=== PATIENT | female | born 2000 | race Caucasian/White ===

== ENCOUNTER 2023-07-02 14:54 | Inpatient (IN) ==
[2023-07-02] MEDS ORDERED: OXYTOCIN 30 UNITS/NSS 30 UNITS/500 ML BAG IV PRN (14:55)
[2023-07-02] MEDS ORDERED: LIDOCAINE 1% LOCAL 20 ML VIAL INFIL PRN (14:55)
[2023-07-02] MEDS ORDERED: Patient's ALLERGY Info needs ENTERED STA (15:02)
--- NOTE | 2023-07-02 15:06 | History & Physical Report ---
Date of Service July 02, 2023 Assessment & Plan (1) Encounter for induction of labor: (2) Obesity affecting : Plan Will admit patient to L&D for induction of labor Fetus cat 1 Rh positive mother GBS negative Rubella immune Ortiz balloon placed Epidural prn Pitocin as needed Patient in agreement Admission and Anticipated Discharge Date Admission Date: July 02, 2023 History of Present Illness Chief Complaint: IOL Primary Care Provider: NO PCP Ellen is a 22 y/o female with no significant PMHx who is currently at IUP 40 6/7 WGA with an FRANKLYN 06/26/23 as determined by certain LMP who is here for IOL due to postdates. (+) movement (-) contractions (-) fluid loss (-) bloody show External FHT and external uterine monitors used * Category 1 tracing * Moderate FHT variability. Had regular appointments since 1st trimester. OB Labs: Blood Type O Positive 11/17/22 Antibody Screen NEGATIVE 11/17/22 Hemoglobin 11.9 g/dl (12.0-16.0) L 05/20/23 Hematocrit 35.9 % (37.0-47.0) L 05/20/23 Mean Corpuscular Volume 85.1 fL (80.0-100.0) 05/20/23 Platelet Count 261 K/uL (130-400) 05/20/23 Rubella IgG Antibody Immune (Immune) 11/17/22 Rapid Plasma Reagin Nonreactive (Nonreactive) 11/17/22 Hepatitis B Surface Antigen. NON-REACTIVE (NON-REACTIVE) 11/17/22 Hepatitis C Antibody (EIA) NON-REACTIVE (NON-REACTIVE) 11/17/22 HIV (1&2) Ag and Ab Confirmation NON-REACTIVE (NON-REACTIVE) 11/17/22 Glucose 1 Hour 50 gm Load 98 mg/dl (70-130) 04/06/23 OB Optional Labs: Chlamydia trachomatis RNA Not Detected (NotDetected) 11/17/22 Neisseria gonorrhoeae RNA Not Detected (NotDetected) 11/17/22 Labs Reviewed: Declines carrier screen--mln low risk panorama--akh declines afp--akh Allergies Allergy/AdvReac Type Severity Reaction Status Date / Time No Known Allergies Allergy Verified 07/01/23 11:24 Home Medications Medication Instructions Recorded Confirmed Type folic acid 400 mcg tablet 0.4 mg PO DAILY 11/09/22 07/01/23 History vit 168-iron 27 mg-folic cap PO 11/09/22 07/01/23 History acid 800 mcg-omega3 235 mg capsule (One-A-Day -1) Patient History Surgical History (Updated 11/09/22 @ 10:57 by Maren Renee) S/P wisdom tooth extraction Family History (Updated 11/09/22 @ 10:52 by Maren Renee) Other Cancer Cervical cancer Dyslipidemia Heart disease Hypertension Social History (Updated 11/09/22 @ 10:52 by Maren Renee) Smoking Status: Never smoker Second Hand Exposure: No; Do You Dip or Chew Tobacco: No; Hx Alcohol Use: No Hx Substance Use: No Preferred Language: Austrian Communication Ability: Effective Facility Assistant Required: No Beliefs That Will Affect Care: None marital status: marital status details: Klever (24) [phone] Current Living Situation: Spouse Current Living Situation Comment: - Klever, dog -Ed 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 Details: never had a pap Review of Systems no fever, no chills and no sweats Denies changes in vision. Denies shortness of breath or respiratory difficulty. no chest pain and no palpitations no dysuria no headache(s) Physical Exam Physical Exam: General: Alert, oriented x3. Afebrile. No acute distress. Eyes: Pupils equal and reactive to light bilaterally. Extraocular movement intact bilaterally. Cardiac: Regular rate and rhythm, no murmurs/rubs/gallops. Respiratory: Clear to auscultation bilaterally a/p, no wheezes/rales/rhonchi. No increased work of breathing. Symmetrical chest rise. No respiratory distress. Abdomen: Gravid; FHR baseline of 125-130 bpm; Position: Vertex Pelvic: 1 / 50 / -3 Lower Extremities: No lower extremity edema or swelling. No deep calf pain. Elham's negative bilaterally
[2023-07-02 15:30] LABS: Hemoglobin 11.4 g/dl (12.0-16.0); Mean Corpuscular Hemoglobin 26.9 pg (25.0-34.0); Mean Corpuscular Hgb Conc 32.6 g/dL (32.0-36.0); Mean Corpuscular Volume 82.5 fL (80.0-100.0); Mean Platelet Volume 10.5 fL (9.4-12.4); Platelet Count 352 K/uL (130-400); RDW Coefficient of Variation 14.2 % (11.5-14.5); RDW Standard Deviation 41.9 fL (36.4-46.3); Red Blood Count 4.24 M/uL (4.20-5.40)
--- NOTE | 2023-07-02 15:48 | Labor Progress Brief Note ---
Date of Service July 02, 2023 Subjective Here for IOL for postdates at 40w6d. Plan per Dr. Castaneda is stallworth with pitocin. Patient has no OB c/o at arrival. Assessment & Plan Admission and Anticipated Discharge Date Admission Date: July 02, 2023 Physical Exam Genitourinary: /3 FHT Cat 1 [place] quiet Membranes intact Stallworth placed at 35cc fill Coding Level of Care Code None
[2023-07-02] MEDS: LACTATED RINGER'S 1,000 ML IV PRN (16:15)
[2023-07-02] MEDS: OXYTOCIN 30 UNITS/NSS 30 UNITS/500 ML BAG IV PRN (16:31)
[2023-07-02] MEDS ORDERED: LIDOCAINE 2% MPF LOCAL 5 ML VIAL EPI PRN (23:43)
[2023-07-02] MEDS ORDERED: fentANYL 2 MCG/ML BUPIVacaine 0.125%-NSS 100ML BAG EPI PRN (23:43)
[2023-07-02] MEDS ORDERED: ePHEDrine sulfate 50 MG/ML AMP IV PRN (23:43)
[2023-07-02] MEDS ORDERED: BUPIVACAINE 0.25% PF 30 ML VIAL EPI PRN (23:43)
[2023-07-02] MEDS ORDERED: fentaNYL citrate PF 100 MCG/2 ML VIAL EPI PRN (23:43)
[2023-07-02] MEDS ORDERED: NALBUPHINE HCL 5 MG in SYRINGE 0 ML IV PRN (23:43)
[2023-07-02] MEDS ORDERED: NALOXONE HCL 0.4 MG/1 ML VIAL/CARP IV PRN (23:43)
[2023-07-02] MEDS ORDERED: ROPIVACAINE 0.5% PF 5 MG/ML 20 ML VIAL EPI PRN (23:43)
[2023-07-02] MEDS ORDERED: NALOXONE HCL 1 MG in SODIUM CHLORIDE 0.9% 1,000 ML IV PRN (23:43)
[2023-07-02] MEDS ORDERED: SODIUM CHLORIDE 0.9% PF INJ 10 ML VIAL EPI PRN (23:43)
[2023-07-02] MEDS ORDERED: diphenhydrAMINE 50 MG/ML VIAL IV PRN (23:43)
--- NOTE | 2023-07-02 23:46 | Anesthesiology Consultation ---
Date of Service July 02, 2023 Assessment & Plan (1) Encounter for pre-operative examination: Chart Review Chart Review: Patient NOT seen in Pre Admission Testing and Acceptable Risk for Labor Epidural Consults Requested none History Height/Weight Height: 5 ft 8 in Weight: 122.016 kg Allergies Allergy/AdvReac Type Severity Reaction Status Date / Time No Known Allergies Allergy Verified 07/01/23 11:24 Medications Home Medications Medication Instructions Recorded Confirmed Last Taken folic acid 400 mcg tablet 0.4 mg PO DAILY 11/09/22 07/02/23 Unknown vit 168-iron 27 mg-folic 1 cap PO DAILY 11/09/22 07/02/23 Unknown acid 800 mcg-omega3 235 mg capsule (One-A-Day -1) Active Medications Generic Name Dose Route Start Last Admin Trade Name Freq PRN Reason Stop Dose Admin Lactated Ringer's 1,000 mls @ 125 mls/hr 07/02/23 14:55 07/02/23 23:42 Lr IV 07/04/23 14:54 999 mls/hr .Q8H PRN Administration L&D Protocol Protocol Oxytocin 30 units in 500 mls @ 14 mls/hr 07/02/23 15:32 07/02/23 22:45 Pitocin 30 Units/Nss IV 07/04/23 15:31 0.84 units/hr .Q24H PRN 14 mls/hr Labor Induction/Augmentation Titration Protocol 0.84 UNITS/HR Past Medical History Medical History (Updated 07/02/23 @ 23:45 by Norm Lopez MD) Encounter for pre-operative examination Hypertension affecting in third trimester Obesity affecting Exercise / Class Metabolic Activity II 4-5 Yardwork/Stairs/Walk up hill Past Family History Family History Other Cancer Cervical cancer Dyslipidemia Heart disease Hypertension Past Surgical History Surgical History S/P wisdom tooth extraction Social History Smoking Status: Never smoker Do You Dip or Chew Tobacco: No Hx Alcohol Use: No Hx Substance Use: No substance use type: does not use Physical Exam Vital Signs Last Vital Signs Temp 36.9 C 07/02/23 23:23 Pulse 80 07/03/23 00:06 Resp 18 07/02/23 23:23 BP 130/80 07/03/23 00:06 Pulse Ox 100 07/03/23 00:05 O2 Del Method Room Air 07/02/23 15:16 Testing Laboratory Results 07/02/23 15:14 Blood Type O Positive 07/02/23 15:14 Antibody Screen NEGATIVE 07/02/23 15:14
[2023-07-03] MEDS: fentaNYL citrate PF 100 MCG/2 ML VIAL ONE ×2 (00:15→10:01)
[2023-07-03] MEDS: LIDOCAINE 2%/EPINEPHRINE 1:200,000 20 ML PF ONE ×2 (00:16→06:39)
[2023-07-03] MEDS: BUPIVACAINE 0.25% PF 30 ML VIAL ONE ×2 (00:16→06:39)
[2023-07-03] MEDS: fentANYL 2 MCG/ML BUPIVacaine 0.125%-NSS 100ML BAG ONE ×2 (00:17→06:40)
--- NOTE | 2023-07-03 01:03 | Labor Progress Brief Note ---
Date of Service July 03, 2023 Subjective Reason For Note: Routine Evaluation Assessment & Plan (1) Encounter for induction of labor: Plan: Status post cervical ripening Ortiz. Will continue with oxytocin per protocol. AROM for clear. Category 1 tracing. Will continue to monitor (2) Supervision of normal intrauterine in primigravida: Trimester: third trimester Qualified Code(s): Z34.03 - Encounter for supervision of normal first , third trimester Admission and Anticipated Discharge Date Admission Date: July 02, 2023 Physical Exam Genitourinary: Manual OB Exam: + cervical dilation 3 cm, + cervical effacement 70%, + station -2 and + amniotic fluid (AROM) clear OB Exam Monitor Tracing: + external FHT monitor used, + external uterine monitor used, + category I and + normal FHT variability Results & Data Vital Signs (Past 12 Hours) Vital Signs Temp Pulse Resp BP Pulse Ox O2 Del Method 07/03/23 00:58 16 07/03/23 00:58 36.7 C 16 07/03/23 00:55 84 99 07/03/23 00:52 63 137/78 07/03/23 00:50 72 98 07/03/23 00:49 66 124/77 07/03/23 00:46 65 125/79 07/03/23 00:45 71 98 07/03/23 00:43 66 124/78 07/03/23 00:40 98 07/03/23 00:40 65 07/03/23 00:40 63 129/84 07/03/23 00:37 58 L 125/81 07/03/23 00:35 72 99 07/03/23 00:34 60 123/82 07/03/23 00:31 66 130/85 07/03/23 00:30 69 98 07/03/23 00:25 77 134/65 98 07/03/23 00:22 74 18 135/76 07/03/23 00:20 74 99 07/03/23 00:19 71 135/87 07/03/23 00:16 79 18 136/88 07/03/23 00:15 84 99 07/03/23 00:13 80 18 139/89 07/03/23 00:10 100 07/03/23 00:10 64 07/03/23 00:10 70 138/84 07/03/23 00:06 80 130/80 07/03/23 00:05 83 100 07/03/23 00:00 89 100 07/02/23 23:55 86 98 07/02/23 23:48 85 100 07/02/23 23:43 85 100 07/02/23 23:23 18 07/02/23 23:23 36.9 C 18 07/02/23 22:43 58 L 135/85 07/02/23 21:41 70 141/89 H 07/02/23 20:41 76 123/75 07/02/23 19:41 75 123/75 07/02/23 19:07 18 07/02/23 19:07 36.7 C 18 07/02/23 19:06 69 133/83 07/02/23 18:41 63 132/81 07/02/23 18:38 64 129/80 07/02/23 16:41 82 125/75 07/02/23 16:11 97 H 136/79 07/02/23 15:16 37.1 C 18 Room Air Coding Level of Care Code None Diagnoses Encounter for induction of labor Z34.90 Encounter for supervision of normal first in third trimester Z34.03 Trimester: third trimester
[2023-07-03] MEDS: SODIUM CHLORIDE 0.9% PF INJ 10 ML VIAL ONE ×2 (01:13→07:18)
[2023-07-03] MEDS: ePHEDrine sulfate 50 MG/ML AMP ONE ×2 (01:15→07:18)
[2023-07-03] MEDS: ONDANSETRON INJ 2 MG/ML 2 ML VIAL IV PRN ×2 (03:27→14:11)
[2023-07-03] MEDS: BUPIVACAINE 0.25% PF 30 ML VIAL EPI STA ×2 (04:27→10:01)
--- NOTE | 2023-07-03 04:58 | Anesthesia Procedure Note ---
Date of Service July 03, 2023 Anesthesia Epidural Re-Dose Vital Signs Temp Pulse Resp BP Pulse Ox O2 Del Method 36.5 C 71 16 143/60 H 100 Room Air 07/03/23 03:00 07/03/23 04:51 07/03/23 03:00 07/03/23 04:51 07/03/23 04:50 07/02/23 15:16 Notes Pain Intensity: 0 Dilatation (cm): 4.0 Effacement (%): 75 Called by nursing to evaluate epidural as the patient is having increased pain. The epidural was re-dosed with the following medications (all medications via epidural route) after negative aspiration of the epidural catheter for CSF/HEME. 6ml of 0.25% bupivacaine followed by 4ml of 2% lidocaine. pain mildly improved. patient with profound lower extremity weakness and sensory change. at this point if patient cannot obtain relief only other option would be to replace epidural. patient does not want to do this at this point in time After Epidural Re-Dose Mental Status: alert / awake / arousable Pain: improving with treatment Airway Patency, RR, SpO2: stable & adequate BP & HR: stable & adequate
[2023-07-03] MEDS: LIDOCAINE 2%/EPINEPHRINE 1:200,000 20 ML PF EPI STA ×2 (05:21→10:02)
[2023-07-03] MEDS ORDERED: AZITHROMYCIN 500 MG in DEXTROSE 5% 250 ML IV SCH (06:00)
[2023-07-03] MEDS: fentaNYL citrate PF 100 MCG/2 ML VIAL EPI STA ×2 (06:36→10:01)
[2023-07-03] MEDS ORDERED: fentANYL 2 MCG/ML BUPIVacaine 0.125%-NSS 100ML BAG EPI PRN (06:46)
[2023-07-03] MEDS ORDERED: ONDANSETRON INJ 2 MG/ML 2 ML VIAL IV PRN (06:46)
[2023-07-03] MEDS ORDERED: NALOXONE HCL 0.4 MG/1 ML VIAL/CARP IV PRN (06:46)
[2023-07-03] MEDS ORDERED: BUPIVACAINE 0.25% PF 30 ML VIAL EPI PRN (06:46)
[2023-07-03] MEDS ORDERED: SODIUM CHLORIDE 0.9% PF INJ 10 ML VIAL EPI PRN (06:46)
[2023-07-03] MEDS ORDERED: NALBUPHINE HCL 5 MG in SYRINGE 0 ML IV PRN ×2 (06:46→11:37)
[2023-07-03] MEDS ORDERED: ePHEDrine sulfate 50 MG/ML AMP IV PRN ×2 (06:46→11:37)
[2023-07-03] MEDS ORDERED: ROPIVACAINE 0.5% PF 5 MG/ML 20 ML VIAL EPI PRN (06:46)
[2023-07-03] MEDS ORDERED: LIDOCAINE 2% MPF LOCAL 5 ML VIAL EPI PRN (06:46)
[2023-07-03] MEDS ORDERED: NALOXONE HCL 1 MG in SODIUM CHLORIDE 0.9% 1,000 ML IV PRN ×2 (06:46→11:37)
[2023-07-03] MEDS ORDERED: diphenhydrAMINE 50 MG/ML VIAL IV PRN ×2 (06:46→11:37)
[2023-07-03] MEDS ORDERED: fentaNYL citrate PF 100 MCG/2 ML VIAL EPI PRN (06:46)
--- NOTE | 2023-07-03 07:25 | Labor Progress Brief Note ---
Date of Service July 03, 2023 Subjective Reason For Note: Routine Evaluation Assessment & Plan (1) Encounter for induction of labor: Plan: Progressing well. Continue Pitocin per regular protocol. Vitals within normal limits. Category 1 tracing. (2) Supervision of normal intrauterine in primigravida: Trimester: third trimester Qualified Code(s): Z34.03 - Encounter for supervision of normal first , third trimester Admission and Anticipated Discharge Date Admission Date: July 02, 2023 Physical Exam Genitourinary: Manual OB Exam: + cervical dilation 6 cm, + cervical effacement 90%, + station 0 and + amniotic fluid clear OB Exam Monitor Tracing: + external FHT monitor used, + external uterine monitor used and + category I Results & Data Vital Signs (Past 12 Hours) Vital Signs Temp Pulse Resp BP Pulse Ox 07/03/23 07:20 79 97 07/03/23 07:15 70 99 07/03/23 07:10 73 99 07/03/23 07:08 62 130/81 07/03/23 07:06 73 132/80 07/03/23 07:05 64 99 07/03/23 07:04 65 129/76 07/03/23 07:02 77 125/65 07/03/23 07:00 62 123/66 98 07/03/23 06:58 50 L 132/79 07/03/23 06:56 52 L 128/73 07/03/23 06:55 98 07/03/23 06:55 56 L 07/03/23 06:55 52 L 94 07/03/23 06:54 51 L 130/74 07/03/23 06:52 50 L 124/79 07/03/23 06:50 58 L 130/83 96 07/03/23 06:48 93 07/03/23 06:48 68 07/03/23 06:48 56 L 126/80 07/03/23 06:45 58 L 98 07/03/23 06:44 83 20 142/92 H 07/03/23 06:42 58 L 138/84 07/03/23 06:40 67 98 07/03/23 06:39 84 130/83 07/03/23 06:35 99 07/03/23 06:35 60 07/03/23 06:35 77 129/88 07/03/23 06:30 82 99 07/03/23 06:25 68 99 07/03/23 06:20 76 99 07/03/23 06:15 61 98 07/03/23 06:10 99 07/03/23 06:10 62 07/03/23 06:10 68 183/85 H 07/03/23 06:05 72 99 07/03/23 06:00 81 100 07/03/23 05:55 73 99 07/03/23 05:52 86 144/84 H 07/03/23 05:50 77 100 07/03/23 05:45 75 99 07/03/23 05:40 77 97 07/03/23 05:38 69 93 07/03/23 05:37 70 132/77 07/03/23 05:35 68 96 07/03/23 05:30 68 96 07/03/23 05:29 77 94 07/03/23 05:25 64 97 07/03/23 05:24 61 94 07/03/23 05:22 63 129/74 07/03/23 05:20 36.7 C 70 16 98 07/03/23 05:15 61 93 07/03/23 05:10 62 93 07/03/23 05:09 63 94 07/03/23 05:08 61 128/74 07/03/23 05:05 62 97 07/03/23 05:00 73 97 07/03/23 04:59 61 93 07/03/23 04:55 63 98 07/03/23 04:51 71 143/60 H 07/03/23 04:50 69 100 07/03/23 04:48 75 126/59 L 07/03/23 04:46 74 127/60 07/03/23 04:45 71 100 07/03/23 04:44 74 121/58 L 07/03/23 04:42 79 116/56 L 07/03/23 04:40 74 130/61 100 07/03/23 04:38 71 128/70 07/03/23 04:36 75 134/70 07/03/23 04:35 99 07/03/23 04:35 72 07/03/23 04:35 77 151/67 H 07/03/23 04:32 84 138/78 07/03/23 04:30 79 131/77 100 07/03/23 04:28 73 129/74 07/03/23 04:25 82 100 07/03/23 04:20 78 99 07/03/23 04:15 84 99 07/03/23 04:10 78 99 07/03/23 04:08 69 138/78 07/03/23 04:05 76 99 07/03/23 04:00 94 H 99 07/03/23 03:55 84 98 07/03/23 03:53 77 108/57 L 07/03/23 03:50 79 98 07/03/23 03:45 80 97 07/03/23 03:40 89 96 07/03/23 03:39 88 131/79 07/03/23 03:35 83 98 07/03/23 03:30 128 H 98 07/03/23 03:25 90 98 07/03/23 03:23 88 128/73 07/03/23 03:20 95 H 98 07/03/23 03:15 88 99 07/03/23 03:10 95 H 99 07/03/23 03:05 86 98 07/03/23 03:00 36.5 C 72 16 99 07/03/23 02:55 76 97 07/03/23 02:54 74 135/57 L 07/03/23 02:50 72 97 07/03/23 02:45 87 99 07/03/23 02:40 98 07/03/23 02:40 67 07/03/23 02:40 71 118/58 L 07/03/23 02:35 84 96 07/03/23 02:30 61 97 07/03/23 02:25 71 98 07/03/23 02:23 64 112/55 L 07/03/23 02:20 78 98 07/03/23 02:15 59 L 97 07/03/23 02:10 68 97 07/03/23 02:09 70 125/69 07/03/23 02:05 65 96 07/03/23 02:00 65 97 07/03/23 01:55 62 98 07/03/23 01:54 68 125/76 07/03/23 01:50 68 98 07/03/23 01:45 63 98 07/03/23 01:40 65 98 07/03/23 01:39 66 120/66 07/03/23 01:35 66 98 07/03/23 01:30 66 97 03/30/24 01:25 74 98 07/03/23 01:23 67 129/72 07/03/23 01:20 67 98 07/03/23 01:15 72 98 07/03/23 01:10 66 98 07/03/23 01:09 62 126/70 07/03/23 01:05 67 98 07/03/23 01:00 61 99 07/03/23 00:58 16 07/03/23 00:58 36.7 C 16 07/03/23 00:55 84 99 07/03/23 00:52 63 137/78 07/03/23 00:50 72 98 07/03/23 00:49 66 124/77 07/03/23 00:46 65 125/79 07/03/23 00:45 71 98 07/03/23 00:43 66 124/78 07/03/23 00:40 98 07/03/23 00:40 65 07/03/23 00:40 63 129/84 07/03/23 00:37 58 L 125/81 07/03/23 00:35 72 99 07/03/23 00:34 60 123/82 07/03/23 00:31 66 130/85 07/03/23 00:30 69 98 07/03/23 00:25 77 134/65 98 07/03/23 00:22 74 18 135/76 07/03/23 00:20 74 99 07/03/23 00:19 71 135/87 07/03/23 00:16 79 18 136/88 07/03/23 00:15 84 99 07/03/23 00:13 80 18 139/89 07/03/23 00:10 100 07/03/23 00:10 64 07/03/23 00:10 70 138/84 07/03/23 00:06 80 130/80 07/03/23 00:05 83 100 07/03/23 00:00 89 100 07/02/23 23:55 86 98 07/02/23 23:48 85 100 07/02/23 23:43 85 100 07/02/23 23:23 18 07/02/23 23:23 36.9 C 18 07/02/23 22:43 58 L 135/85 07/02/23 21:41 70 141/89 H 07/02/23 20:41 76 123/75 07/02/23 19:41 75 123/75 Coding Level of Care Code None Diagnoses Encounter for induction of labor Z34.90 Encounter for supervision of normal first in third trimester Z34.03 Trimester: third trimester
--- NOTE | 2023-07-03 09:42 | Labor Progress Brief Note ---
Date of Service July 03, 2023 Subjective Very numb after epidural redose. Feeling some hip pressure and back pressure Assessment & Plan (1) Encounter for induction of labor: Plan Will resume pitocin now that status allows such Can try peanut ball and maternal positioning to attempt to bring head a bit lower before active pushing efforts, which will also allow dense numbness from epidural to lighten a bit which may help pushing efforts be more successful. Pt aware of possibility of CPD given molding/high station/hip pain. Admission and Anticipated Discharge Date Admission Date: July 02, 2023 Physical Exam Genitourinary: FHT Cat 1 (moderate to occasionally marked variability, and is noted to have been Cat 2 at many previous times overnight). [place] Q5-6 with pitocin turned off, which it has been due to prior Cat 2 strip Cvx complete but molding present, station high (-2). Patient attempted push but unable to effect movement of fetus. Results & Data Vital Signs (Past 12 Hours) Vital Signs Temp Pulse Resp BP Pulse Ox 07/03/23 09:30 67 96 07/03/23 09:25 96 07/03/23 09:25 72 07/03/23 09:25 71 130/71 07/03/23 09:20 74 95 07/03/23 09:15 93 H 96 07/03/23 09:10 75 127/68 97 07/03/23 09:05 85 100 07/03/23 09:00 81 98 07/03/23 08:55 99 07/03/23 08:55 80 07/03/23 08:55 86 128/78 07/03/23 08:51 66 93 07/03/23 08:50 63 97 07/03/23 08:45 70 98 07/03/23 08:40 98 07/03/23 08:40 81 07/03/23 08:40 81 139/77 07/03/23 08:35 66 99 07/03/23 08:30 69 20 98 07/03/23 08:25 98 07/03/23 08:25 70 07/03/23 08:25 75 138/74 07/03/23 08:20 77 99 07/03/23 08:15 79 99 07/03/23 08:10 98 07/03/23 08:10 84 07/03/23 08:10 93 H 138/85 07/03/23 08:05 77 98 07/03/23 08:00 64 20 98 07/03/23 07:55 79 128/77 98 07/03/23 07:50 90 99 07/03/23 07:45 61 96 07/03/23 07:40 97 07/03/23 07:40 68 07/03/23 07:40 66 119/72 07/03/23 07:35 70 96 07/03/23 07:30 67 95 07/03/23 07:25 74 98 07/03/23 07:20 79 97 07/03/23 07:19 98.2 F 07/03/23 07:15 70 99 07/03/23 07:10 73 99 07/03/23 07:08 62 130/81 07/03/23 07:06 73 132/80 07/03/23 07:05 64 99 07/03/23 07:04 65 129/76 07/03/23 07:02 77 125/65 07/03/23 07:00 62 123/66 98 07/03/23 06:58 50 L 132/79 07/03/23 06:56 52 L 128/73 07/03/23 06:55 98 07/03/23 06:55 56 L 07/03/23 06:55 52 L 94 07/03/23 06:54 51 L 130/74 07/03/23 06:52 50 L 124/79 07/03/23 06:50 58 L 130/83 96 07/03/23 06:48 93 07/03/23 06:48 68 07/03/23 06:48 56 L 126/80 07/03/23 06:45 58 L 98 07/03/23 06:44 83 20 142/92 H 07/03/23 06:42 58 L 138/84 07/03/23 06:40 67 98 07/03/23 06:39 84 130/83 07/03/23 06:35 99 07/03/23 06:35 60 07/03/23 06:35 77 129/88 07/03/23 06:30 82 99 07/03/23 06:25 68 99 07/03/23 06:20 76 99 07/03/23 06:15 61 98 07/03/23 06:10 99 07/03/23 06:10 62 03/30/24 06:10 68 183/85 H 07/03/23 06:05 72 99 07/03/23 06:00 81 100 07/03/23 05:55 73 99 07/03/23 05:52 86 144/84 H 07/03/23 05:50 77 100 07/03/23 05:45 75 99 07/03/23 05:40 77 97 07/03/23 05:38 69 93 07/03/23 05:37 70 132/77 07/03/23 05:35 68 96 07/03/23 05:30 68 96 07/03/23 05:29 77 94 07/03/23 05:25 64 97 07/03/23 05:24 61 94 07/03/23 05:22 63 129/74 07/03/23 05:20 98.1 F 70 16 98 07/03/23 05:15 61 93 07/03/23 05:10 62 93 07/03/23 05:09 63 94 07/03/23 05:08 61 128/74 07/03/23 05:05 62 97 07/03/23 05:00 73 97 07/03/23 04:59 61 93 07/03/23 04:55 63 98 07/03/23 04:51 71 143/60 H 07/03/23 04:50 69 100 07/03/23 04:48 75 126/59 L 07/03/23 04:46 74 127/60 07/03/23 04:45 71 100 07/03/23 04:44 74 121/58 L 07/03/23 04:42 79 116/56 L 07/03/23 04:40 74 130/61 100 07/03/23 04:38 71 128/70 07/03/23 04:36 75 134/70 07/03/23 04:35 99 07/03/23 04:35 72 07/03/23 04:35 77 151/67 H 07/03/23 04:32 84 138/78 07/03/23 04:30 79 131/77 100 07/03/23 04:28 73 129/74 07/03/23 04:25 82 100 07/03/23 04:20 78 99 07/03/23 04:15 84 99 07/03/23 04:10 78 99 07/03/23 04:08 69 138/78 07/03/23 04:05 76 99 07/03/23 04:00 94 H 99 07/03/23 03:55 84 98 07/03/23 03:53 77 108/57 L 07/03/23 03:50 79 98 07/03/23 03:45 80 97 07/03/23 03:40 89 96 07/03/23 03:39 88 131/79 07/03/23 03:35 83 98 07/03/23 03:30 128 H 98 07/03/23 03:25 90 98 07/03/23 03:23 88 128/73 07/03/23 03:20 95 H 98 07/03/23 03:15 88 99 07/03/23 03:10 95 H 99 07/03/23 03:05 86 98 07/03/23 03:00 97.7 F 72 16 99 07/03/23 02:55 76 97 07/03/23 02:54 74 135/57 L 07/03/23 02:50 72 97 07/03/23 02:45 87 99 07/03/23 02:40 98 07/03/23 02:40 67 07/03/23 02:40 71 118/58 L 07/03/23 02:35 84 96 07/03/23 02:30 61 97 07/03/23 02:25 71 98 07/03/23 02:23 64 112/55 L 07/03/23 02:20 78 98 07/03/23 02:15 59 L 97 07/03/23 02:10 68 97 07/03/23 02:09 70 125/69 07/03/23 02:05 65 96 07/03/23 02:00 65 97 07/03/23 01:55 62 98 07/03/23 01:54 68 125/76 07/03/23 01:50 68 98 07/03/23 01:45 63 98 07/03/23 01:40 65 98 07/03/23 01:39 66 120/66 07/03/23 01:35 66 98 07/03/23 01:30 66 97 07/03/23 01:25 74 98 07/03/23 01:23 67 129/72 07/03/23 01:20 67 98 07/03/23 01:15 72 98 03/30/24 01:10 66 98 07/03/23 01:09 62 126/70 07/03/23 01:05 67 98 07/03/23 01:00 61 99 07/03/23 00:58 16 07/03/23 00:58 98.1 F 16 07/03/23 00:55 84 99 07/03/23 00:52 63 137/78 07/03/23 00:50 72 98 07/03/23 00:49 66 124/77 07/03/23 00:46 65 125/79 07/03/23 00:45 71 98 07/03/23 00:43 66 124/78 07/03/23 00:40 98 07/03/23 00:40 65 07/03/23 00:40 63 129/84 07/03/23 00:37 58 L 125/81 07/03/23 00:35 72 99 07/03/23 00:34 60 123/82 07/03/23 00:31 66 130/85 07/03/23 00:30 69 98 07/03/23 00:25 77 134/65 98 07/03/23 00:22 74 18 135/76 07/03/23 00:20 74 99 07/03/23 00:19 71 135/87 07/03/23 00:16 79 18 136/88 07/03/23 00:15 84 99 07/03/23 00:13 80 18 139/89 07/03/23 00:10 100 07/03/23 00:10 64 07/03/23 00:10 70 138/84 07/03/23 00:06 80 130/80 07/03/23 00:05 83 100 07/03/23 00:00 89 100 07/02/23 23:55 86 98 07/02/23 23:48 85 100 07/02/23 23:43 85 100 07/02/23 23:23 18 07/02/23 23:23 98.4 F 18 07/02/23 22:43 58 L 135/85 07/02/23 21:41 70 141/89 H Coding Level of Care Code None Diagnoses Encounter for induction of labor Z34.90
[2023-07-03] MEDS: SODIUM CHLORIDE 0.9% PF INJ 10 ML VIAL EPI STA ×2 (10:00→10:02)
[2023-07-03] MEDS: NURSING L&D Epidural Breakthrough Pain Update ONE (10:01)
--- NOTE | 2023-07-03 10:48 | Labor Progress Brief Note ---
Date of Service July 03, 2023 Subjective Patient feeling very bad pain in bilateral hips and lower spine, despite being quite numb in legs/perineum, and having difficulty pushing when asked to. Very tired, very frustrated, feels baby is large, and is tearful, wanting to be done. Assessment & Plan (1) Encounter for induction of labor: Plan: Patient has reached complete dilation but with high station, molding, tarah ne-on-bone pelvic aching pain that makes it difficult for mom to proceed in second stage even with very dense epidural effect in her soft tissue. Doesn't seem likely we can get good control of the remaining pain, she would have to push through it. I was called to the room to speak with her, and she requests to proceed to section. (2) Maternal exhaustion complicating labor and delivery: Admission and Anticipated Discharge Date Admission Date: July 02, 2023 Physical Exam Genitourinary: Per RN there has been no descent and patient unable to move baby at all with pushing attempts, which only dramatically worsen her hip pain without making any progress. Pit restarted at 2 and contractions still ~Q3 on average. FHT Cat 1 Results & Data Vital Signs (Past 12 Hours) Vital Signs Temp Pulse Resp BP Pulse Ox 07/03/23 10:40 73 98 07/03/23 10:39 67 93 07/03/23 10:35 83 98 07/03/23 10:30 84 99 07/03/23 10:25 99 07/03/23 10:25 108 H 07/03/23 10:25 99 H 132/88 07/03/23 10:20 72 97 07/03/23 10:15 83 99 07/03/23 10:10 84 126/80 98 07/03/23 10:05 78 96 07/03/23 10:00 74 20 95 07/03/23 09:56 74 94 07/03/23 09:55 97 07/03/23 09:55 73 07/03/23 09:55 69 120/69 07/03/23 09:50 67 96 07/03/23 09:45 69 96 07/03/23 09:40 97 07/03/23 09:40 71 07/03/23 09:40 72 124/70 07/03/23 09:38 65 94 07/03/23 09:35 64 96 07/03/23 09:30 98.8 F 67 20 96 07/03/23 09:25 96 07/03/23 09:25 72 03 09:25 71 130/71 07/03/23 09:20 74 95 07/03/23 09:15 93 H 96 07/03/23 09:10 75 127/68 97 07/03/23 09:05 85 100 07/03/23 09:00 81 98 07/03/23 08:55 99 07/03/23 08:55 80 07/03/23 08:55 86 128/78 07/03/23 08:51 66 93 07/03/23 08:50 63 97 07/03/23 08:45 70 98 07/03/23 08:40 98 07/03/23 08:40 81 07/03/23 08:40 81 139/77 07/03/23 08:35 66 99 07/03/23 08:30 69 20 98 07/03/23 08:25 98 07/03/23 08:25 70 07/03/23 08:25 75 138/74 07/03/23 08:20 77 99 07/03/23 08:15 79 99 07/03/23 08:10 98 07/03/23 08:10 84 07/03/23 08:10 93 H 138/85 07/03/23 08:05 77 98 07/03/23 08:00 64 20 98 07/03/23 07:55 79 128/77 98 07/03/23 07:50 90 99 07/03/23 07:45 61 96 07/03/23 07:40 97 07/03/23 07:40 68 07/03/23 07:40 66 119/72 07/03/23 07:35 70 96 07/03/23 07:30 67 95 07/03/23 07:25 74 98 07/03/23 07:20 79 97 07/03/23 07:19 98.2 F 07/03/23 07:15 70 99 07/03/23 07:10 73 99 07/03/23 07:08 62 130/81 07/03/23 07:06 73 132/80 07/03/23 07:05 64 99 07/03/23 07:04 65 129/76 07/03/23 07:02 77 125/65 03/30/24 07:00 62 123/66 98 07/03/23 06:58 50 L 132/79 07/03/23 06:56 52 L 128/73 07/03/23 06:55 98 07/03/23 06:55 56 L 07/03/23 06:55 52 L 94 07/03/23 06:54 51 L 130/74 07/03/23 06:52 50 L 124/79 07/03/23 06:50 58 L 130/83 96 07/03/23 06:48 93 07/03/23 06:48 68 07/03/23 06:48 56 L 126/80 07/03/23 06:45 58 L 98 07/03/23 06:44 83 20 142/92 H 07/03/23 06:42 58 L 138/84 07/03/23 06:40 67 98 07/03/23 06:39 84 130/83 07/03/23 06:35 99 07/03/23 06:35 60 07/03/23 06:35 77 129/88 07/03/23 06:30 82 99 07/03/23 06:25 68 99 07/03/23 06:20 76 99 07/03/23 06:15 61 98 07/03/23 06:10 99 07/03/23 06:10 62 07/03/23 06:10 68 183/85 H 07/03/23 06:05 72 99 07/03/23 06:00 81 100 07/03/23 05:55 73 99 07/03/23 05:52 86 144/84 H 07/03/23 05:50 77 100 07/03/23 05:45 75 99 07/03/23 05:40 77 97 07/03/23 05:38 69 93 07/03/23 05:37 70 132/77 07/03/23 05:35 68 96 07/03/23 05:30 68 96 07/03/23 05:29 77 94 07/03/23 05:25 64 97 07/03/23 05:24 61 94 07/03/23 05:22 63 129/74 07/03/23 05:20 98.1 F 70 16 98 07/03/23 05:15 61 93 07/03/23 05:10 62 93 07/03/23 05:09 63 94 07/03/23 05:08 61 128/74 07/03/23 05:05 62 97 07/03/23 05:00 73 97 07/03/23 04:59 61 93 07/03/23 04:55 63 98 07/03/23 04:51 71 143/60 H 07/03/23 04:50 69 100 07/03/23 04:48 75 126/59 L 07/03/23 04:46 74 127/60 07/03/23 04:45 71 100 07/03/23 04:44 74 121/58 L 07/03/23 04:42 79 116/56 L 07/03/23 04:40 74 130/61 100 07/03/23 04:38 71 128/70 07/03/23 04:36 75 134/70 07/03/23 04:35 99 07/03/23 04:35 72 07/03/23 04:35 77 151/67 H 07/03/23 04:32 84 138/78 07/03/23 04:30 79 131/77 100 07/03/23 04:28 73 129/74 07/03/23 04:25 82 100 07/03/23 04:20 78 99 07/03/23 04:15 84 99 07/03/23 04:10 78 99 07/03/23 04:08 69 138/78 07/03/23 04:05 76 99 07/03/23 04:00 94 H 99 07/03/23 03:55 84 98 07/03/23 03:53 77 108/57 L 07/03/23 03:50 79 98 07/03/23 03:45 80 97 07/03/23 03:40 89 96 07/03/23 03:39 88 131/79 07/03/23 03:35 83 98 07/03/23 03:30 128 H 98 07/03/23 03:25 90 98 07/03/23 03:23 88 128/73 07/03/23 03:20 95 H 98 07/03/23 03:15 88 99 07/03/23 03:10 95 H 99 07/03/23 03:05 86 98 07/03/23 03:00 97.7 F 72 16 99 07/03/23 02:55 76 97 07/03/23 02:54 74 135/57 L 07/03/23 02:50 72 97 07/03/23 02:45 87 99 07/03/23 02:40 98 07/03/23 02:40 67 07/03/23 02:40 71 118/58 L 07/03/23 02:35 84 96 07/03/23 02:30 61 97 07/03/23 02:25 71 98 07/03/23 02:23 64 112/55 L 07/03/23 02:20 78 98 07/03/23 02:15 59 L 97 07/03/23 02:10 68 97 07/03/23 02:09 70 125/69 07/03/23 02:05 65 96 07/03/23 02:00 65 97 07/03/23 01:55 62 98 07/03/23 01:54 68 125/76 07/03/23 01:50 68 98 07/03/23 01:45 63 98 07/03/23 01:40 65 98 07/03/23 01:39 66 120/66 07/03/23 01:35 66 98 07/03/23 01:30 66 97 07/03/23 01:25 74 98 07/03/23 01:23 67 129/72 07/03/23 01:20 67 98 07/03/23 01:15 72 98 07/03/23 01:10 66 98 07/03/23 01:09 62 126/70 07/03/23 01:05 67 98 07/03/23 01:00 61 99 07/03/23 00:58 16 07/03/23 00:58 98.1 F 16 07/03/23 00:55 84 99 07/03/23 00:52 63 137/78 07/03/23 00:50 72 98 07/03/23 00:49 66 124/77 07/03/23 00:46 65 125/79 07/03/23 00:45 71 98 07/03/23 00:43 66 124/78 07/03/23 00:40 98 07/03/23 00:40 65 07/03/23 00:40 63 129/84 07/03/23 00:37 58 L 125/81 07/03/23 00:35 72 99 07/03/23 00:34 60 123/82 07/03/23 00:31 66 130/85 07/03/23 00:30 69 98 07/03/23 00:25 77 134/65 98 07/03/23 00:22 74 18 135/76 07/03/23 00:20 74 99 07/03/23 00:19 71 135/87 07/03/23 00:16 79 18 136/88 07/03/23 00:15 84 99 07/03/23 00:13 80 18 139/89 07/03/23 00:10 100 07/03/23 00:10 64 07/03/23 00:10 70 138/84 07/03/23 00:06 80 130/80 07/03/23 00:05 83 100 07/03/23 00:00 89 100 07/02/23 23:55 86 98 07/02/23 23:48 85 100 07/02/23 23:43 85 100 07/02/23 23:23 18 07/02/23 23:23 98.4 F 18 07/02/23 22:43 58 L 135/85 Coding Level of Care Code None Diagnoses Encounter for induction of labor Z34.90 Maternal exhaustion complicating labor and delivery O75.81
[2023-07-03] MEDS: CITRIC ACID/SODIUM CITRATE 15 ML UDC ONE (10:52)
[2023-07-03] MEDS ORDERED: Nursing to Pharmacy Communication SCH (11:00)
[2023-07-03] MEDS: ceFAZolin 3000MG 3,000 MG/72.5 ML BAG IV SCH (11:02)
[2023-07-03] MEDS: LACTATED RINGER'S 1,000 ML IV SCH ×2 (11:04→20:31)
[2023-07-03] MEDS ORDERED: fentaNYL citrate PF 100 MCG/2 ML VIAL ONE (11:07)
[2023-07-03] MEDS ORDERED: MoRPHine SULFATE PF 1 MG/ML 10 ML AMP/VIAL ONE (11:07)
[2023-07-03] MEDS ORDERED: PHENYLEPHRINE HCL 10 MG/ML VIAL ONE (11:11)
[2023-07-03] MEDS ORDERED: SUCCINYLCHOLINE CHLORIDE 20 MG/ML 10 ML VIAL IV ONE (11:11)
[2023-07-03] MEDS ORDERED: PHENYLEPHRINE 100MCG/ML 10ML SYR IV ONE (11:11)
[2023-07-03] MEDS ORDERED: PROPOFOL IV EMULSION 10 MG/ML 20 ML VIAL IV ONE (11:11)
[2023-07-03] MEDS ORDERED: LACTATED RINGER'S 500 ML IV PRN (11:37)
[2023-07-03] MEDS ORDERED: MoRPHine SULFATE PF 1 MG/ML 10 ML AMP/VIAL EPI ONE (11:37)
[2023-07-03] MEDS ORDERED: NALOXONE HCL 0.08 MG in SYRINGE 1.8 ML IV PRN (11:37)
[2023-07-03] MEDS ORDERED: HYDROmorphone INJ 0.5 MG/0.5 ML SYR IV PRN (11:37)
[2023-07-03] MEDS ORDERED: PROMETHAZINE HCL 6.25 MG in SODIUM CHLORIDE 0.9% 50 ML IV PRN (11:37)
[2023-07-03] MEDS ORDERED: ONDANSETRON INJ 2 MG/ML 2 ML VIAL ONE (11:42)
[2023-07-03] MEDS ORDERED: DEXAMETHASONE SOD INJ 4 MG/ML VIAL ONE (11:42)
[2023-07-03] MEDS ORDERED: NO NARCOTICS OR SEDATIVES SCH (11:45)
[2023-07-03] MEDS ORDERED: DC INTRASPINAL MORPHINE SCH (11:45)
[2023-07-03] MEDS ORDERED: SODIUM CHLORIDE 0.9% 1,000 ML IV SCH (11:45)
--- NOTE | 2023-07-03 12:05 | Operative Report ---
PG Post Operative Report Pre & Post Diagnosis Operation Date: 07/03/23 11:30 Pre-Op Diagnosis: SIUP @ 41wk IOL Maternal Exhaustion Suspected CPD I identified the patient and participated in the time-out.: Yes Procedure Operation Date: 07/03/23 11:30 Primary Low Transverse Section Surgeon Marybel Block MD Inking Machine Tender Vida MAURER Estimated Blood Loss 550 Findings Consistent with Post-Op Diagnosis Specimens Placenta, cord blood Anesthesia Type General Complications none Disposition Accompanied Patient To Recovery: Yes Disposition: L&D Description of Procedure The patient was placed operating table in the supine position with a leftward tilt. She was prepped and draped in standard sterile fashion. A time-out was held, identifying correct patient, procedure, positioning and preoperative antibiotics. There were no concerns. General anesthetic was established. A Pfannenstiel skin incision was made with a knife and taken down to the underlying layer of fascia. The fascia was incised in the midline and extended bluntly. The muscles were bluntly in the midline. The peritoneum was entered bluntly. The incision was then stretched. The Cheng retractor was placed. Bladder reflection was visually identified but no bladder flap was created. A hysterotomy incision was created transversely in the lower uterine segment, final entry being accomplished in a blunt manner with the sewage screen operator's fingers. Clear amniotic fluid was encountered. The sewage screen operator's hand was used to elevate the head to the hysterotomy. The head was delivered using mild fundal pressure, and the shoulders and body followed without difficulty. The cord was clamped and cut and the infant was then handed off to the awaiting rx specialist. Cord blood was obtained. The placenta was Manually extracted. The uterus was cleared of all clot and debris with moistened laparotomy sponges. The hysterotomy incision was repaired in two layers, the first in a running locked layer, the second in an imbricating layer. The ovaries and tubes were not seen as uterus remained in-situ. A final inspection of the hysterotomy revealed good hemostasis. Cheng was removed. The rectus muscles were allowed to reapproximate naturally. The fascia was then reapproximated with 1 Vicryl in a running nonlocked manner. The fascia was examined and found to be free of defect following closure. The subcutaneous tissue was copiously irrigated and reapproximated with 0-chromic, then the skin edges were closed with 4-0 monocryl in a subcuticular fashion. A dermabond dressing was applied. The stallworth was found to be draining clear yellow urine at completion of the procedure. I attest to the content of the Intraoperative Record and any orders documented therein. Any exceptions are noted below. I attest to the content of the Intraoperative Record and any orders documented therein. Any exceptions are noted below. OB Procedure Charges 31517
[2023-07-03] MEDS: KETOROLAC 30 MG/ML VIAL IV PRN (12:18)
[2023-07-03] MEDS ORDERED: SENNA 8.6 MG TAB PO PRN (12:20)
[2023-07-03] MEDS ORDERED: MAGNESIUM HYDROXIDE SUSP 30 ML UDC PO PRN (12:20)
[2023-07-03] MEDS ORDERED: HYDROCORTISONE ACETATE 25 MG SUPP PR PRN (12:20)
[2023-07-03] MEDS ORDERED: OXYTOCIN 10 UNITS in LACTATED RINGER'S 1,000 ML IV SCH (12:20)
[2023-07-03] MEDS ORDERED: BENZOCAINE 20% SPRY 85 APPLN/85 GM CAN EXT PRN (12:20)
[2023-07-03] MEDS: NALOXONE HCL 0.4 MG/1 ML VIAL/CARP IV PRN (12:26)
[2023-07-03] MEDS: OXYTOCIN 30 UNITS/1003ML LR IV ONE (12:33)
[2023-07-03] MEDS: DIPHTHER/TETAN/PERTUS Vaccine (Tdap, Adol/Adult) 0.5mL IM ONE (12:36)
--- NOTE | 2023-07-03 12:42 | Anesthesiology Progress Note ---
Date of Service July 03, 2023 Anesthesia Post Procedure Vital Signs Vital Signs: Temp Pulse Resp BP Pulse Ox O2 Del Method 07/03/23 12:39 78 96 07/03/23 12:34 75 94 07/03/23 12:33 76 130/59 L 07/03/23 12:31 73 94 07/03/23 12:29 76 95 07/03/23 12:24 98 H 96 07/03/23 12:23 115 H 145/93 H 07/03/23 12:22 89 94 07/03/23 12:19 95 H 97 07/03/23 12:14 93 H 98 07/03/23 12:09 96 07/03/23 12:09 101 H 07/03/23 12:09 100 H 141/90 H 07/03/23 11:10 81 124/74 99 07/03/23 11:05 80 99 07/03/23 11:00 92 H 99 07/03/23 10:55 97 07/03/23 10:55 88 07/03/23 10:55 74 131/75 07/03/23 10:50 74 98 07/03/23 10:45 73 97 07/03/23 10:42 70 123/70 07/03/23 10:40 73 98 07/03/23 10:39 67 93 07/03/23 10:35 83 98 07/03/23 10:30 84 99 07/03/23 10:25 99 07/03/23 10:25 108 H 07/03/23 10:25 99 H 132/88 07/03/23 10:20 72 97 07/03/23 10:15 83 99 07/03/23 10:10 84 126/80 98 07/03/23 10:05 78 96 07/03/23 10:00 74 20 95 07/03/23 09:56 74 94 07/03/23 09:55 97 07/03/23 09:55 73 07/03/23 09:55 69 120/69 07/03/23 09:50 67 96 07/03/23 09:45 69 96 07/03/23 09:40 97 07/03/23 09:40 71 07/03/23 09:40 72 124/70 07/03/23 09:38 65 94 07/03/23 09:35 64 96 07/03/23 09:30 37.1 C 67 20 96 07/03/23 09:25 96 07/03/23 09:25 72 03 09:25 71 130/71 07/03/23 09:20 74 95 07/03/23 09:15 93 H 96 07/03/23 09:10 75 127/68 97 07/03/23 09:05 85 100 07/03/23 09:00 81 98 07/03/23 08:55 99 07/03/23 08:55 80 07/03/23 08:55 86 128/78 07/03/23 08:51 66 93 07/03/23 08:50 63 97 07/03/23 08:45 70 98 07/03/23 08:40 98 07/03/23 08:40 81 07/03/23 08:40 81 139/77 07/03/23 08:35 66 99 07/03/23 08:30 69 20 98 07/03/23 08:25 98 07/03/23 08:25 70 07/03/23 08:25 75 138/74 07/03/23 08:20 77 99 07/03/23 08:15 79 99 07/03/23 08:10 98 07/03/23 08:10 84 07/03/23 08:10 93 H 138/85 07/03/23 08:05 77 98 07/03/23 08:00 64 20 98 07/03/23 07:55 79 128/77 98 07/03/23 07:50 90 99 07/03/23 07:45 61 96 07/03/23 07:40 97 07/03/23 07:40 68 07/03/23 07:40 66 119/72 07/03/23 07:35 70 96 07/03/23 07:30 67 95 07/03/23 07:25 74 98 07/03/23 07:20 79 97 07/03/23 07:19 36.8 C 07/03/23 07:15 70 99 07/03/23 07:10 73 99 07/03/23 07:08 62 130/81 07/03/23 07:06 73 132/80 07/03/23 07:05 64 99 07/03/23 07:04 65 129/76 07/03/23 07:02 77 125/65 07/03/23 07:00 62 123/66 98 07/03/23 06:58 50 L 132/79 07/03/23 06:56 52 L 128/73 07/03/23 06:55 98 07/03/23 06:55 56 L 07/03/23 06:55 52 L 94 07/03/23 06:54 51 L 130/74 07/03/23 06:52 50 L 124/79 07/03/23 06:50 58 L 130/83 96 07/03/23 06:48 93 07/03/23 06:48 68 07/03/23 06:48 56 L 126/80 07/03/23 06:45 58 L 98 07/03/23 06:44 83 20 142/92 H 07/03/23 06:42 58 L 138/84 07/03/23 06:40 67 98 07/03/23 06:39 84 130/83 07/03/23 06:35 99 07/03/23 06:35 60 07/03/23 06:35 77 129/88 07/03/23 06:30 82 99 07/03/23 06:25 68 99 07/03/23 06:20 76 99 07/03/23 06:15 61 98 07/03/23 06:10 99 07/03/23 06:10 62 07/03/23 06:10 68 183/85 H 07/03/23 06:05 72 99 07/03/23 06:00 81 100 07/03/23 05:55 73 99 07/03/23 05:52 86 144/84 H 07/03/23 05:50 77 100 07/03/23 05:45 75 99 07/03/23 05:40 77 97 07/03/23 05:38 69 93 07/03/23 05:37 70 132/77 07/03/23 05:35 68 96 07/03/23 05:30 68 96 07/03/23 05:29 77 94 07/03/23 05:25 64 97 07/03/23 05:24 61 94 07/03/23 05:22 63 129/74 07/03/23 05:20 36.7 C 70 16 98 07/03/23 05:15 61 93 07/03/23 05:10 62 93 07/03/23 05:09 63 94 03/30/24 05:08 61 128/74 07/03/23 05:05 62 97 07/03/23 05:00 73 97 07/03/23 04:59 61 93 07/03/23 04:55 63 98 07/03/23 04:51 71 143/60 H 07/03/23 04:50 69 100 07/03/23 04:48 75 126/59 L 07/03/23 04:46 74 127/60 07/03/23 04:45 71 100 07/03/23 04:44 74 121/58 L 07/03/23 04:42 79 116/56 L 07/03/23 04:40 74 130/61 100 07/03/23 04:38 71 128/70 07/03/23 04:36 75 134/70 07/03/23 04:35 99 07/03/23 04:35 72 07/03/23 04:35 77 151/67 H 07/03/23 04:32 84 138/78 07/03/23 04:30 79 131/77 100 07/03/23 04:28 73 129/74 07/03/23 04:25 82 100 07/03/23 04:20 78 99 07/03/23 04:15 84 99 07/03/23 04:10 78 99 07/03/23 04:08 69 138/78 07/03/23 04:05 76 99 07/03/23 04:00 94 H 99 07/03/23 03:55 84 98 07/03/23 03:53 77 108/57 L 07/03/23 03:50 79 98 07/03/23 03:45 80 97 07/03/23 03:40 89 96 07/03/23 03:39 88 131/79 07/03/23 03:35 83 98 07/03/23 03:30 128 H 98 07/03/23 03:25 90 98 07/03/23 03:23 88 128/73 07/03/23 03:20 95 H 98 07/03/23 03:15 88 99 07/03/23 03:10 95 H 99 07/03/23 03:05 86 98 07/03/23 03:00 36.5 C 72 16 99 07/03/23 02:55 76 97 07/03/23 02:54 74 135/57 L 07/03/23 02:50 72 97 07/03/23 02:45 87 99 07/03/23 02:40 98 07/03/23 02:40 67 07/03/23 02:40 71 118/58 L 07/03/23 02:35 84 96 07/03/23 02:30 61 97 07/03/23 02:25 71 98 07/03/23 02:23 64 112/55 L 07/03/23 02:20 78 98 07/03/23 02:15 59 L 97 07/03/23 02:10 68 97 07/03/23 02:09 70 125/69 07/03/23 02:05 65 96 07/03/23 02:00 65 97 07/03/23 01:55 62 98 07/03/23 01:54 68 125/76 07/03/23 01:50 68 98 07/03/23 01:45 63 98 07/03/23 01:40 65 98 07/03/23 01:39 66 120/66 07/03/23 01:35 66 98 07/03/23 01:30 66 97 07/03/23 01:25 74 98 07/03/23 01:23 67 129/72 07/03/23 01:20 67 98 07/03/23 01:15 72 98 07/03/23 01:10 66 98 07/03/23 01:09 62 126/70 07/03/23 01:05 67 98 07/03/23 01:00 61 99 07/03/23 00:58 16 07/03/23 00:58 36.7 C 16 07/03/23 00:55 84 99 07/03/23 00:52 63 137/78 07/03/23 00:50 72 98 07/03/23 00:49 66 124/77 07/03/23 00:46 65 125/79 07/03/23 00:45 71 98 07/03/23 00:43 66 124/78 07/03/23 00:40 98 07/03/23 00:40 65 07/03/23 00:40 63 129/84 07/03/23 00:37 58 L 125/81 07/03/23 00:35 72 99 07/03/23 00:34 60 123/82 07/03/23 00:31 66 130/85 07/03/23 00:30 69 98 07/03/23 00:25 77 134/65 98 07/03/23 00:22 74 18 135/76 07/03/23 00:20 74 99 07/03/23 00:19 71 135/87 07/03/23 00:16 79 18 136/88 07/03/23 00:15 84 99 07/03/23 00:13 80 18 139/89 07/03/23 00:10 100 07/03/23 00:10 64 07/03/23 00:10 70 138/84 07/03/23 00:06 80 130/80 07/03/23 00:05 83 100 07/03/23 00:00 89 100 07/02/23 23:55 86 98 07/02/23 23:48 85 100 07/02/23 23:43 85 100 07/02/23 23:23 18 07/02/23 23:23 36.9 C 18 07/02/23 22:43 58 L 135/85 07/02/23 21:41 70 141/89 H 07/02/23 20:41 76 123/75 07/02/23 19:41 75 123/75 07/02/23 19:07 18 07/02/23 19:07 36.7 C 18 07/02/23 19:06 69 133/83 07/02/23 18:41 63 132/81 07/02/23 18:38 64 129/80 07/02/23 16:41 82 125/75 07/02/23 16:11 97 H 136/79 07/02/23 15:16 37.1 C 18 Room Air Pain Intensity Bilateral Lower Abdomen: Pain Intensity: 7 Transfer of Care Handoff Completed per policy Notes Mental Status: alert / awake / arousable and participated in evaluation Patient Amnestic to Procedure: Yes Nausea / Vomiting: adequately controlled Pain: adequately controlled Airway Patency, RR, SpO2: stable & adequate BP & HR: stable & adequate Hydration State: stable & adequate Anesthetic Complications: no major complications apparent and Pt Satisfied with anesthetic care
--- NOTE | 2023-07-03 12:50 | Anesthesia Procedure Note ---
Date of Service July 03, 2023 Anesthesia Post Epidural Note Vital Signs Vital Signs: Temp Pulse Resp BP Pulse Ox O2 Del Method 37.1 C 78 20 130/59 L 96 Room Air 07/03/23 09:30 07/03/23 12:39 07/03/23 10:00 07/03/23 12:33 07/03/23 12:39 07/02/23 15:16 Pain Intensity Bilateral Lower Abdomen: Pain Intensity: 7 Notes Mental Status: alert / awake / arousable and participated in evaluation Patient Amnestic to Procedure: Yes Nausea / Vomiting: adequately controlled Pain: adequately controlled Airway Patency, RR, SpO2: stable & adequate BP & HR: stable & adequate Hydration State: stable & adequate Neuraxial Anesthesia: was administered and sensory block is resolving Anesthetic Complications: no major complications apparent and Pt Satisfied with anesthetic care Epidural: Removed without complications and With tip intact Notes: pulled epidural after end of c section while in OR. did bolus 3 mg duramorph via epidural but no additional local anesthesia given. pt and I discussed prior to c section to choose general anesthesia given concern that epidural had not been working as well as she would like. her concern was that she would start to have pain during the procedure if we tried to use the epidural solely. c section was uneventful and she woke up and was extubated without incident. patient was moving her lower extremities much more after the procedure than beforehand. appears that the large doses of local anesthesia with her two epidurals and bolus has started to wear off. again noted was bruising at the site of the first epidural. bruising was not any worse than when it was seen earlier before attempting the second epidural. no active bleeding noted. patient denies back pain. patient made aware of bruising and told she may have some soreness for several days in her lumbar region. she and nursing staff instructed to reach out with worsening back pain, progression of sensory loss or motor dysfunction in herblower extremities or any loss of bowel or bladder function. all questions answered.
[2023-07-03] MEDS: OXYTOCIN 30 UNITS/LR 1,003 ML IV SCH (14:23)
[2023-07-03] MEDS: DOCUSATE SODIUM 100 MG CAP PO SCH (20:31)
[2023-07-03] MEDS: SIMETHICONE 80 MG CHEW PO SCH (20:35)
--- NOTE | 2023-07-03 22:22 | Communication Note ---
Date of Service: July 03, 2023 Went to see patient as follow up as I cared for her earlier today. She was sitting upright in bed holding her . She said her pain is well controlled and denied any nausea. She has not been OOB to ambulate yet but plan is to do that in the morning. She denied any back pain or discomfort in her lumbar region. She also denied any radicular symptoms. While she did describe some tightness of her lower extremities, she felt this was improving. Of note, patient did appear to be quite swollen earlier today when I performed the first epidural. She is able to easily move her lower extremities and had what appeared to be full strength with flexing and extending at the knee (quads/hamstrings) and plantar/dorsiflexion of b/l feet. Again she was made aware of bruising at her epidural site and was instructed to reach out to our service if she starts to experience any back pain or has any lower extremity neurological difficulties. She was appreciative of the care she received and had all questions answered.
[2023-07-04] MEDS ORDERED: PROMETHAZINE HCL 25 MG in SODIUM CHLORIDE 0.9% 50 ML IV PRN (05:37)
[2023-07-04] MEDS ORDERED: ONDANSETRON INJ 2 MG/ML 2 ML VIAL IV PRN (05:37)
[2023-07-04] MEDS ORDERED: diphenhydrAMINE 50 MG/ML VIAL IV PRN (05:37)
[2023-07-04] MEDS ORDERED: diphenhydrAMINE Capsule 25 MG CAP PO PRN (05:37)
[2023-07-04] MEDS ORDERED: KETOROLAC 30 MG/ML VIAL IV PRN (05:38)
[2023-07-04] MEDS ORDERED: MEPERIDINE HCL 50 MG/ML CARP IV PRN (05:38)
[2023-07-04 06:50] LABS: Basophils # (auto) 0.02 K/uL (0.00-0.20); Basophils % (auto) 0.2 %; Eosinophils # (auto) 0.02 K/uL (0.00-0.50); Eosinophils % (auto) 0.2 %; Hematocrit (blood only) 33.3 % (37.0-47.0); Hemoglobin 10.4 g/dl (12.0-16.0); Immature Granulocytes # (auto) 0.07 K/uL (0.01-0.20); Immature Granulocytes % (auto) 0.6 %; Lymphocytes % (auto) 14.7 %; Mean Corpuscular Hemoglobin 26.6 pg (25.0-34.0); Mean Corpuscular Hgb Conc 31.2 g/dL (32.0-36.0); Mean Corpuscular Volume 85.2 fL (80.0-100.0); Mean Platelet Volume 10.5 fL (9.4-12.4); Monocytes # (auto) 0.91 K/uL (0.11-0.59); Monocytes % (auto) 7.4 %; Neutrophils # (auto) 9.42 K/uL (1.40-6.50); Neutrophils % (auto) 76.9 %; Platelet Count 315 K/uL (130-400); RDW Coefficient of Variation 14.6 % (11.5-14.5); RDW Standard Deviation 45.1 fL (36.4-46.3); Red Blood Count 3.91 M/uL (4.20-5.40); White Blood Count 12.24 K/ul (4.8-10.8)
--- NOTE | 2023-07-04 08:03 | Obstetrical Progress Note ---
Date of Service July 04, 2023 Assessment & Plan (1) state: Normal POD#1 recovery, doing well. Subjective Ambulation: ambulating normally Voiding: no voiding problems Passing Gas:: Yes Diet Tolerance:: regular diet Lochia:: Small Feeding Type:: breast feeding Physical Exam Constitutional WD/WN, vitals as above Eyes PERRL, conjunctivae normal, anicteric sclerae Neck normal visual inspection Respiratory normal respiratory effort and able to speak in complete sentences; no respiratory distress and no labored breathing Cardiovascular Rate/Rhythm: regular rate and regular rhythm Extremities: no edema Chest (Breasts) Chest: normal inspection of chest Gastrointestinal (Abdomen) Inspection/Auscultation: abdomen normal to inspection Soft, postgravid Incision c/d/i with dermabond Psychiatric A+Ox3, euthymic affect Genitourinary OB Exam Abdomen: + fundal height Fundus: + firm and + relation to umbilicus (fundus just below umbilicus); not tender Results & Data Vital Signs (Past 12 Hours) Vital Signs Temp Pulse Resp BP Pulse Ox O2 Del Method 07/04/23 05:00 18 94 07/04/23 05:00 97.9 F 69 18 104/67 94 07/04/23 04:30 18 96 07/04/23 03:30 20 94 07/04/23 02:30 20 95 07/04/23 01:30 18 95 07/04/23 00:25 98.2 F 83 18 112/72 94 07/04/23 00:20 20 94 07/03/23 23:20 18 95 07/03/23 22:15 18 94 07/03/23 21:20 20 97 07/03/23 20:20 97.3 F L 87 20 132/87 98 07/03/23 20:20 Room Air 07/03/23 20:10 20 98
[2023-07-04] MEDS: PRENATAL VITAMIN 1 TAB PO SCH (08:18)
[2023-07-04] MEDS: FERROUS SULFATE 325 MG TAB PO SCH (08:18)
[2023-07-04] MEDS: oxyCODONE/ACETAMINOPHEN 5mg/325mg TAB PO PRN (14:02)
[2023-07-04] MEDS: IBUPROFEN 600 MG TAB PO PRN (14:02)
[2023-07-04] MEDS: bisacodyL 5 MG TABEC PO SCH (19:39)
--- NOTE | 2023-07-05 04:39 | Obstetrical Progress Note ---
Date of Service July 05, 2023 Assessment & Plan (1) Encounter for assessment: Plan 22 y/o POD#2 Eating well, voiding well, ambulating well Vitals reviewed, WNL Pain well controlled with percocet/motrin Routine post op care - OOB, ambulation, diet progression as tolerated Will have 6 week follow up with Dr. Block Subjective Ambulation: ambulating normally Voiding: no voiding problems Passing Gas:: Yes Diet Tolerance:: regular diet Lochia:: Small Feeding Type:: breast feeding pain well controlled with Percocet/Motrin Review of Systems -Denies fever or chills -Denies dyspnea, chest pain, or palpitations -Denies breast pain -Denies dysuria -Denies headache or changes in vision Physical Exam General: Alert and oriented. No acute distress Cardiac: Regular rate and rhythm, no murmurs appreciated Respiratory: Lungs clear to auscultation bilaterally, No increased work of breathing Abdominal: Soft, non-tender, non-distended. Bowel sounds present. Uterus: Uterine fundus firm, palpable below umbilicus Extremities: No lower extremity edema, calves non-tender bilaterally Results & Data Vital Signs (Past 12 Hours) Vital Signs Temp Pulse Resp BP Pulse Ox O2 Del Method 07/04/23 23:17 36.6 C 86 16 119/75 97 Room Air 07/04/23 19:27 36.9 C 88 18 128/82 96 Room Air
[2023-07-05 06:31] LABS: Hematocrit (blood only) 30.1 % (37.0-47.0); Hemoglobin 9.2 g/dl (12.0-16.0)
[2023-07-05] MEDS ORDERED: bisacodyL 10 MG SUPP PR PRN (12:09)
== END 2023-07-05 13:45 | disposition home or self-care (01) | DRG 788 ==
LOC: 4S1 14:54 → 4E2 07-03 14:45